=== PATIENT | male | born 1950 | race Caucasian/White ===

== ENCOUNTER 2018-01-27 08:38 | Emergency (ER) | payer MEDICARE, BC ==
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
--- NOTE | 2018-01-28 11:12 | CR ---
INDICATION: Chest pain. CHEST: AP and lateral views of the chest were obtained 01/27/[address] of the chest dated 04/02/2009. There is some increased density overlying the lower middle right lung, which could be on the basis of overlying densities. Minimal infiltration is difficult to entirely exclude in this area. However, no consolidating pneumonia or effusion was identified. Findings compatible with COPD are noted. The heart appeared to be normal in size and shape, allowing for an epicardial fat pad on the left. The aorta is slightly tortuous with minimal calcification suggested in the arch. Decreased bone density is suggested, which may be on the basis of osteomalacia or osteoporosis and should be correlated clinically. There is loss of anterior vertebral body volume at a midthoracic level of indeterminate age. Mccullough rods are noted across the lower middle through upper middle thoracic spine and appear intact. IMPRESSION: 1. No definite acute process but difficult to exclude minimal patchy pneumonia in the right mid lung field - correlate clinically. 2. COPD. 3. ASD aorta. 4. Mccullough rods mid thoracic spine with compression fracture present at least since 04/02/2009 CT of the chest and abdomen. MTDD
== END 2018-01-27 11:38 | disposition home or self-care (01) ==
LOC: FB.ED 08:38
DX: R07.9 Chest pain, unspecified (principal); Z87.891 Personal history of nicotine dependence; Z79.01 Long term (current) use of anticoagulants
CPT/HCPCS: 36415; 71046; 80053; 81001; 82150; 83880; 84484; 85025; 85379; 85610; 86140; 93005; 93010; 99284; 99285

== ENCOUNTER 2020-03-28 17:40 | Emergency (ER) | payer MEDICARE, BC ==
[2020-03-28] MEDS ORDERED: Sodium Chloride 0.9% 1,000 ML IV ONE (18:08)
[2020-03-28] MEDS ORDERED: Morphine 2 MG/ML Syringe IM ONE (18:09)
[2020-03-28] MEDS ORDERED: Morphine 2 MG/ML Syringe IVPUSH ONE (18:14)
[2020-03-28] MEDS ORDERED: Ondansetron 4 MG/2 ML SDV IVPUSH ONE (18:20)
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
[2020-03-28] MEDS ORDERED: Iopamidol 755 Mg/ML 100 ML Bottle IV ONE (19:38)
[2020-03-28] MEDS ORDERED: Ertapenem 1 GM in Sodium Chloride 0.9% 50 ML IV ONE (20:53)
[2020-03-28] MEDS ORDERED: Sodium Chloride 0.9% 1,000 ML IV SCH (21:15)
== END 2020-03-28 22:05 ==
LOC: FB.ED 17:40
DX: K43.3 Parastomal hernia with obstruction, without gangrene (principal); K56.609 Unspecified intestinal obstruction, unspecified as to partial versus complete obstruction; I26.99 Other pulmonary embolism without acute cor pulmonale; D68.318 Other hemorrhagic disorder due to intrinsic circulating anticoagulants, antibodies, or inhibitors; Z79.01 Long term (current) use of anticoagulants
CPT/HCPCS: 36415; 74177; 80053; 82565; 83880; 84295; 84484; 85025; 85610; 93005; 96361; 96365; 96375; 99285; J1335; J2270; J2405; J7030; J7050; Q9967

== ENCOUNTER 2021-12-17 22:28 | Emergency (ER) | payer MEDICARE, BC ==
[2021-12-17] MEDS ORDERED: Morphine 4 MG/ML VIAL IVPUSH ONE (22:39)
[2021-12-17] MEDS ORDERED: Sodium Chloride 0.9% 10 ML Syringe FLUSH PRN (22:39)
[2021-12-17] MEDS ORDERED: Ondansetron 4 MG/2 ML SDV IVPUSH ONE (22:39)
[2021-12-17] MEDS ORDERED: Iopamidol 755 Mg/ML 100 ML Bottle IV ONE (22:56)
[2021-12-17] MEDS: Sodium Chloride 0.9% 1,000 ML IV SCH (23:45)
[2021-12-18] MEDS ORDERED: Morphine 2 MG/ML SYRINGE IVPUSH PRN (00:01)
[2021-12-18] MEDS: Sodium Chloride 0.9% 1,000 ML IV SCH (06:35)
[2021-12-18] MEDS ORDERED: cefTRIAXone 1 GM Vial IVPUSH SCH (09:15)
== END 2021-12-18 11:30 ==
LOC: FB.ED 22:28
DX: N39.0 Urinary tract infection, site not specified (principal); K56.609 Unspecified intestinal obstruction, unspecified as to partial versus complete obstruction; K46.9 Unspecified abdominal hernia without obstruction or gangrene; Z79.899 Other long term (current) drug therapy; Z79.01 Long term (current) use of anticoagulants; Z20.822 Contact with and (suspected) exposure to COVID-19
CPT/HCPCS: 36415; 43752; 74177; 80048; 80053; 81001; 83605; 85025; 85610; 86140; 87086; 87186; 96374; 96375; 99285; J0696; J2270; J2405; J7030; Q9967; U0002

== ENCOUNTER 2022-04-16 04:26 | Emergency (ER) | payer MEDICARE, BC ==
[2022-04-16] MEDS ORDERED: Sodium Chloride 0.9% 1,000 ML IV ONE (05:14)
[2022-04-16] MEDS ORDERED: Albuterol/Ipratropium 3.0-0.5 MG/3 ML Neb Soln NEB ONE (07:55)
== END 2022-04-16 08:45 ==
LOC: FB.ED 04:26
DX: K56.699 Other intestinal obstruction unspecified as to partial versus complete obstruction (principal); I44.4 Left anterior fascicular block; E86.0 Dehydration; N28.9 Disorder of kidney and ureter, unspecified; R79.82 Elevated C-reactive protein (CRP); E11.65 Type 2 diabetes mellitus with hyperglycemia; Z79.01 Long term (current) use of anticoagulants; Z20.822 Contact with and (suspected) exposure to COVID-19; Z90.49 Acquired absence of other specified parts of digestive tract; Z79.899 Other long term (current) drug therapy
CPT/HCPCS: 36415; 43752; 51702; 74176; 80053; 81001; 83605; 83690; 84484; 85025; 85610; 86140; 87086; 87088; 87186; 93005; 99285; J7030; U0002

== ENCOUNTER 2022-04-28 14:22 | Emergency (ER) | payer MEDICARE, BC ==
[2022-04-28] MEDS ORDERED: Sodium Chloride 0.9% 10 ML Syringe FLUSH PRN (15:10)
[2022-04-28] MEDS ORDERED: Iopamidol 755 Mg/ML 100 ML Bottle IV ONE (15:49)
[2022-04-28] MEDS ORDERED: Ondansetron 4 MG/2 ML SDV ONE (18:25)
[2022-04-28] MEDS ORDERED: Promethazine 25 MG/ML SDV ONE (18:26)
[2022-04-28] MEDS ORDERED: Promethazine 25 MG/ML SDV IM STA (18:37)
[2022-04-28] MEDS ORDERED: Ondansetron 4 MG/2 ML SDV IVPUSH ONE (18:37)
== END 2022-04-28 20:30 ==
LOC: FB.ED 14:22
DX: K46.9 Unspecified abdominal hernia without obstruction or gangrene (principal); K56.609 Unspecified intestinal obstruction, unspecified as to partial versus complete obstruction; Z87.891 Personal history of nicotine dependence; Z79.899 Other long term (current) drug therapy; Z79.01 Long term (current) use of anticoagulants
CPT/HCPCS: 36415; 43752; 51702; 71045; 74177; 81001; 82150; 82271; 83690; 99284; 99285-25; J2405; J2550; Q9967

== ENCOUNTER 2023-02-20 18:55 | Emergency (ER) | payer MEDICARE, BC ==
[2023-02-20] MEDS ORDERED: Acetaminophen/HYDROcodone 325-5 MG Tab PO ONE (18:56)
[2023-02-20] MEDS ORDERED: Ondansetron 4 MG Tab.DIS PO ONE (19:17)
[2023-02-20] MEDS ORDERED: Acetaminophen/HYDROcodone 325-10 MG Tab PO ONE (19:20)
== END 2023-02-20 19:45 | disposition home or self-care (01) ==
LOC: FB.ED 18:55
DX: M19.012 Primary osteoarthritis, left shoulder (principal); R60.0 Localized edema; Z87.891 Personal history of nicotine dependence; Z79.01 Long term (current) use of anticoagulants
CPT/HCPCS: 99283; A9270; Q0162

== ENCOUNTER 2024-07-10 07:50 | Day surgery (SDC) | payer MEDICARE, BC ==
[~2024-07-10 07:50] MED LIST: Sodium Chloride 0.9% 10 ML Syringe FLUSH PRN
[2024-07-10] MEDS ORDERED: Midazolam 1 MG/ML 2 ML SDV IV ONE (07:51)
[2024-07-10] MEDS ORDERED: Flumazenil 0.1 MG/ML 5 ML MDV IV ONE (07:51)
[2024-07-10] MEDS ORDERED: Propofol 200 MG/20 ML SDV IV ONE (07:51)
[2024-07-10] MEDS ORDERED: Lidocaine 2% 100 MG/5 ML Syringe IVPUSH ONE (07:51)
[2024-07-10] MEDS: Simethicone Drops 40 MG/0.6 ML 30 ML Bottle ONE (08:57)
[2024-07-10] MEDS: Lactated Ringers 1,000 ML IV SCH (09:00)
== END 2024-07-10 10:45 | disposition home or self-care (01) ==
LOC: FB.SDS 07:50
PROVIDERS: ATTEND Surgery
DX: C82.93 Follicular lymphoma, unspecified, intra-abdominal lymph nodes (principal); K31.9 Disease of stomach and duodenum, unspecified; K31.A0 Gastric intestinal metaplasia, unspecified; I10 Essential (primary) hypertension; K21.9 Gastro-esophageal reflux disease without esophagitis; E66.9 Obesity, unspecified; Z87.891 Personal history of nicotine dependence; Z68.33 Body mass index [BMI] 33.0-33.9, adult; Z79.01 Long term (current) use of anticoagulants; Z79.899 Other long term (current) drug therapy
CPT/HCPCS: 00731; 88305; 88325; 88341; 88342; 99100; A9270-GY; J2250; J2704; J3490; J7120

== ENCOUNTER 2025-05-29 07:25 | Day surgery (SDC) | payer MEDICARE, BC ==
[~2025-05-29 07:25] MED LIST changes: +Lactated Ringers 1,000 ML IV PRN
[2025-05-29] MEDS ORDERED: fentaNYL 100 MCG/2 ML SDV IV ONE (07:26)
[2025-05-29] MEDS ORDERED: Midazolam 1 MG/ML 2 ML SDV IV ONE (07:26)
[2025-05-29] MEDS: Lactated Ringers 1,000 ML IV PRN (08:27)
[2025-05-29] MEDS: acetaZOLAMIDE 500 MG Cap.ER PO ONE (09:30)
[2025-05-29] MEDS ORDERED: Sodium Chloride 0.9% 10 ML Syringe FLUSH PRN (11:41)
== END 2025-05-29 09:40 | disposition home or self-care (01) ==
LOC: FB.SDS 07:25
PROVIDERS: ATTEND Ophthalmology
DX: H25.9 Unspecified age-related cataract (principal); I10 Essential (primary) hypertension; E66.9 Obesity, unspecified; I44.4 Left anterior fascicular block; Z79.01 Long term (current) use of anticoagulants; Z79.82 Long term (current) use of aspirin; Z79.899 Other long term (current) drug therapy; Z87.891 Personal history of nicotine dependence; Z68.36 Body mass index [BMI] 36.0-36.9, adult
CPT/HCPCS: 00142; 66984; 99100; A9270; J2250; J3010; J7120; V2632

== ENCOUNTER 2025-06-12 06:42 | Day surgery (SDC) | payer MEDICARE, BC ==
[2025-06-12] MEDS ORDERED: fentaNYL 100 MCG/2 ML SDV IV ONE (06:43)
[2025-06-12] MEDS ORDERED: Midazolam 1 MG/ML 2 ML SDV IV ONE (06:43)
[2025-06-12] MEDS ORDERED: Sodium Chloride 0.9% 10 ML Syringe FLUSH PRN (06:45)
[2025-06-12] MEDS: Lactated Ringers 1,000 ML IV PRN (07:33)
[2025-06-12] MEDS: acetaZOLAMIDE 500 MG Cap.ER PO ONE (08:30)
== END 2025-06-12 08:45 | disposition home or self-care (01) ==
LOC: FB.SDS 06:42
PROVIDERS: ATTEND Ophthalmology
DX: H25.9 Unspecified age-related cataract (principal); I44.4 Left anterior fascicular block; I25.10 Atherosclerotic heart disease of native coronary artery without angina pectoris; I10 Essential (primary) hypertension; E66.9 Obesity, unspecified; Z68.36 Body mass index [BMI] 36.0-36.9, adult; Z79.82 Long term (current) use of aspirin; Z87.891 Personal history of nicotine dependence; Z79.899 Other long term (current) drug therapy
CPT/HCPCS: 00142; 66984; 99100; A9270; J2250; J3010; J7120; V2632